=== PATIENT | male | born 1995 | race African-American/Black ===

== ENCOUNTER 2021-05-31 17:59 | Emergency (ER) | payer OTHER | END 2021-05-31 19:23 | disposition left against medical advice (07) | LOC: ED 17:59 | DX: R51.9 Headache, unspecified (principal); M54.2 Cervicalgia; V89.2XXA Person injured in unspecified motor-vehicle accident, traffic, initial encounter; Y93.89 Activity, other specified; Y92.89 Other specified places as the place of occurrence of the external cause; Y99.8 Other external cause status ==